=== PATIENT | female | born 1990 | race Caucasian/White ===

== ENCOUNTER → 2019-09-17 15:20 | Outpatient (CLI) | payer BC, SELFPAY ==
--- NOTE | 2019-09-17 15:32 | XR_ITS ---
PROCEDURE: XR FOOT LT MIN 3V CLINICAL INDICATION: LT FOOT AND ANKLE PAIN Left foot and ankle pain COMPARISON: XR ANKLE LT MIN 3V from 09/17/2019 FINDINGS: No fracture or dislocation. No lytic or blastic change. There is normal mineralization. The joint spaces are well-preserved. No significant degenerative/arthritic changes. No erosive changes evident. Other findings:There is an os cuboid as a normal variant IMPRESSION: Negative left foot and ankle Dictated by: Neri Chinchilla MD 09/17/2019 17:48 Electronically signed by Neri Chinchilla MD in [place] 09/17/2019 17:48
== END ==
PROVIDERS: Visit Provider Nurse Practitioner
DX: M79.672 Pain in left foot (principal); M25.572 Pain in left ankle and joints of left foot
CPT/HCPCS: 73610; 73630

== ENCOUNTER 2021-05-13 22:08 | Emergency (ER) | payer OTHER, BC, SELFPAY ==
[2021-05-13 21:57] VITALS: BP 148/99; PULSE 97; RESP 19; TEMP 36.8; O2SAT 97; BMI 37.5
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
[2021-05-13 22:32] LABS: Basophils # 0.3 K/mm3 (0-0.2); Basophils % 1.9 % (0.1-2.0); Eosinophils # 0.2 K/mm3 (0.0-0.4); Eosinophils % 1.1 % (0.1-12.0); Hematocrit 40.3 % (37.0-47.0); Hemoglobin 12.5 g/dL (12.2-16.2); Lymphocytes # 5.8 K/mm3 (0.7-4.5); Lymphocytes % 35.6 % (10-50); Mean Corpuscular HGB Conc 31.1 g/dL (31.8-35.4); Mean Corpuscular Hemoglobin 24.9 pg (27.0-31.2); Mean Corpuscular Volume 80.3 fl (81-99); Mean Platelet Volume 8.1 fl (7.4-10.4); Monocytes # 0.4 K/mm3 (0.1-1.0); Monocytes % 2.6 % (1.7-9.3); Neutrophils # 9.6 K/mm3 (1.8-7.8); Neutrophils % 58.8 % (37.0-80.0); Red Blood Count 5.02 M/mm3 (4.20-5.40); Red Cell Distribution Width 15.1 % (11.5-17.5); White Blood Count 16.3 K/mm3 (4.8-10.8)
[2021-05-13 22:35] LABS: Alanine Aminotransferase 24 U/L (12-78); Albumin Level 4.2 g/dl (3.5-5.0); Albumin/Globulin Ratio 1.1 (1.1-1.8); Alkaline Phosphatase 78 U/L (38-126); Aspartate Amino Transferase 41 U/L (14-36); Bilirubin,Total 0.2 mg/dl (0.2-1.3); Blood Urea Nitrogen 16 mg/dl (7-17); Calcium 9.4 mg/dl (8.4-10.2); Carbon Dioxide 25 mmol/L (22.0-30.0); Chloride 105 mmol/L (98-107); Creatinine Clearance Estimated 238 mL/min (50-200); Estimated Glomerular Filt Rate 118 ml/min (>60); GFR (African American) 143 ML/MIN (>60); Glucose 113 mg/dl (74-100); HCG Qualitative, Serum Negative (Negative); Lipase 40 U/L (23-300); Sodium 141 mmol/L (136-145); Total Protein,Serum 8.2 g/dl (6.3-8.2)
[2021-05-13 22:36] LABS: Platelet Count 637 K/mm3 (142-424)
[2021-05-13 22:37] LABS: MANUAL DIFFERENTIAL MANUAL DIFFERENTIAL (MANUAL DIFF)
[2021-05-13 23:02] LABS: Hypochromasia 1+; Lymphocytes % 22 % (10-50); Neutrophils % 77 % (42-76); Platelet Estimate Moderate Increase; Total Cells Counted 100
--- NOTE | 2021-05-13 23:10 | HMH.EDUPEXT ---
ED Disposition Clinical Impression: Left wrist injury Qualifiers: Encounter type: initial encounter Qualified Code(s): S69.92XA - Unspecified injury of left wrist, hand and finger(s), initial encounter Right wrist injury Qualifiers: Encounter type: initial encounter Qualified Code(s): S69.91XA - Unspecified injury of right wrist, hand and finger(s), initial encounter Abdominal contusion Qualifiers: Encounter type: initial encounter Qualified Code(s): S30.1XXA - Contusion of abdominal wall, initial encounter Disposition: Home, Self-Care Condition on Discharge: Good Instructions: DI for Wrist Strain Additional Instructions: advil/tyenol and see pcp for follow up Referrals: Ashley Moore APRN [Primary Care Provider] - - Critical Care Critical Care Time: No Attestation: On 05/13/21, the high probability of a clinically significant, sudden or life threatening deterioration of the following system(s) required my full and direct attention, intervention and personal management. The time I documented below is in addition to time spent performing reported procedures but includes the following listed in this critical care notation. Medical Decision Making - Medical Records Medical records reviewed: Yes: I reviewed the patient's medical records. - Marco A Inquiry Pt receiving controlled substance: No Vital Signs: 05/13/21 21:57 Temperature 98.2 F Temperature Source Oral Pulse Rate [Right Brachial] 97 H Respiratory Rate 19 Blood Pressure [Right Arm] 148/99 H Blood Pressure Mean [Right Arm] 115 Blood Pressure Source [Right Arm] Automatic Cuff Blood Pressure Position [Right Arm] Sitting 02 Sat by Pulse Oximetry 97 Oxygen Delivery Method Room Air - Lab Data Lab results reviewed: Yes: I reviewed the patient's lab results. Lab Results 05/13/21 22:04: WBC 16.3 H, RBC 5.02, Hgb 12.5, Hct 40.3, MCV 80.3 L, MCH 24.9 L, MCHC 31.1 L, RDW 15.1, Plt Count 637 H, MPV 8.1, Neut % (Auto) 58.8, Lymph % (Auto) 35.6, [place] % (Auto) 2.6, Eos % (Auto) 1.1, Baso % (Auto) 1.9, Neut # (Auto) 9.6 H, Lymph # (Auto) 5.8 H, [place] # (Auto) 0.4, Eos # (Auto) 0.2, Baso # (Auto) 0.3 H, Total Counted 100, Neutrophils % (Manual) 77 H, Band Neutrophils % 1.0, Lymphocytes % (Manual) 22, Platelet Estimate Moderate increase, Hypochromasia 1+ 05/13/21 22:04: Sodium 141, Potassium 4.0, Chloride 105, Carbon Dioxide 25, Anion Gap 15.0, BUN 16, Creatinine 0.60, Estimated Creat Clear 238, Estimated GFR 118, Est GFR ( Amer) 143, Glucose 113 H, Calcium 9.4, Total Bilirubin 0.2, AST 41 H, ALT 24, Alkaline Phosphatase 78, Total Protein 8.2, Albumin 4.2, Globulin 4.0 H, Albumin/Globulin Ratio 1.1, Lipase 40 05/13/21 22:04: Serum HCG, Qual Negative Result diagrams: 05/13/21 22:04 05/13/21 22:04 Orders (Tests/Meds): ED MEDICATIONS Discontinued Medications Generic Name Dose Route Start Last Admin Trade Name Justoq PRN Reason Stop Dose Admin Iopamidol 100 ml 05/13/21 23:17 05/13/21 23:18 Iopamidol-370 (76%);100ml Bottle IV 05/13/21 23:18 100 ml ONCE ONE Administration Sodium Chloride 40 ml 05/13/21 23:17 05/13/21 23:18 0.9 % Sodium Chloride 50 Ml Vial IV 05/13/21 23:18 40 ml ONCE ONE Administration Sodium Chloride 10 ml 05/13/21 23:17 05/13/21 23:18 Sodium Chloride 0.9% 10ml Syr (Rad Only) IV 05/13/21 23:18 10 ml ONCE ONE Administration ORDERS Category Date Time Status Urinalysis and Microscopic Stat Lab 05/13/21 22:14 Ordered - Radiology Data #1 Image(s): Chest, Forearm, Wrist, Pelvis Image Reviewed: Yes I have reviewed radiologist's interpretation Preliminary Findings: No Fracture Seen - CT Data CT Scan: Abdomen, Pelvis, Chest Time Received: 00:[address] Reviewed: Yes: I have viewed the radiologist's interpretation Preliminary Findings: Normal/NAD Medical Decision Narrative: no fx seen and no chest or abd injury Upper Extremity HPI - General Chief Complaint: Extremity Injury
[2021-05-14 00:56] VITALS: BP 136/90; PULSE 88; RESP 16; TEMP 36.6; O2SAT 99
== END 2021-05-14 00:59 | disposition home or self-care (01) ==
PROVIDERS: Emergency Provider Emergency Medicine; PCP Nurse Practitioner Family
DX: S30.1XXA Contusion of abdominal wall, initial encounter (principal); S69.92XA Unspecified injury of left wrist, hand and finger(s), initial encounter; S69.91XA Unspecified injury of right wrist, hand and finger(s), initial encounter; V40.5XXA Car driver injured in collision with pedestrian or animal in traffic accident, initial encounter; Y92.488 Other paved roadways as the place of occurrence of the external cause
CPT/HCPCS: 29125; 71045; 71275; 72170; 73090; 73110; 74177; 80053; 83690; 84703; 85007; 85025; 99282; Q9967

== ENCOUNTER 2021-07-28 18:07 | Emergency (ER) | payer BC, SELFPAY ==
[2021-07-28 18:09] VITALS: BP 150/98; PULSE 98; RESP 18; TEMP 36.9; O2SAT 99; BMI 40.7
--- NOTE | 2021-07-28 18:17 | XR_ITS ---
PROCEDURE INFORMATION: Exam: XR Chest Exam date and time: 07/28/2021 6:17 PM Age: 31 years old Clinical indication: Cough; Additional info: Covid TECHNIQUE: Imaging protocol: XR of the chest. Views: 1 view. COMPARISON: CR XR CHEST PORTABLE 05/13/2021 10:34 PM FINDINGS: Lungs: Unremarkable. No consolidation. Pleural spaces: Unremarkable. No pleural effusion. No pneumothorax. Heart/Mediastinum: Unremarkable. No cardiomegaly. Bones/joints: Unremarkable. IMPRESSION: No acute findings.
--- NOTE | 2021-07-28 18:27 | PC.NURSE ---
Called RAD for chest xray
[2021-07-28 18:36] LABS: Basophils # 0.2 K/mm3 (0-0.2); Basophils % 1.5 % (0.1-2.0); Eosinophils # 0.1 K/mm3 (0.0-0.4); Eosinophils % 0.9 % (0.1-12.0); Hematocrit 41.1 % (37.0-47.0); Hemoglobin 13.6 g/dL (12.2-16.2); Lymphocytes # 4.8 K/mm3 (0.7-4.5); Lymphocytes % 48.5 % (10-50); Mean Corpuscular HGB Conc 33.1 g/dL (31.8-35.4); Mean Corpuscular Volume 75.4 fl (81-99); Mean Platelet Volume 7.2 fl (7.4-10.4); Monocytes # 0.4 K/mm3 (0.1-1.0); Monocytes % 3.9 % (1.7-9.3); Neutrophils # 4.5 K/mm3 (1.8-7.8); Neutrophils % 45.2 % (37.0-80.0); Platelet Count 603 K/mm3 (142-424); Red Blood Count 5.45 M/mm3 (4.20-5.40); Red Cell Distribution Width 14.8 % (11.5-17.5)
--- NOTE | 2021-07-28 18:38 | HMH.EDGENADL ---
ED Disposition Clinical Impression: COVID-19 virus infection Disposition: Home, Self-Care Condition on Discharge: Good Instructions: DI for COVID-19 (Suspected or Confirmed ) Additional Instructions: Outpatient monoclonal antibody therapy. You will be contacted with appointment time. COVID-19 Isolation: Isolate yourself for a MINIMUM of 10 days from onset of symptoms: What to do: Monitor your symptoms. If you have an emergency warning sign (including trouble breathing), seek emergency medical care immediately. Stay in a separate room from other household members, if possible. Use a separate bathroom, if possible. Avoid contact with other members of the household and pets. Don?t share personal household items, like cups, towels, and utensils. Wear a mask when around other people if able. You can be around others AFTER: 10 days since symptoms first appeared AND 24 hours with no fever without the use of fever-reducing medications AND Other symptoms of COVID-19 are improving Referrals: Provider,Referral, [Primary Care Provider] - - Critical Care Critical Care Time: No Attestation: On 07/28/21, the high probability of a clinically significant, sudden or life threatening deterioration of the following system(s) required my full and direct attention, intervention and personal management. The time I documented below is in addition to time spent performing reported procedures but includes the following listed in this critical care notation. Medical Decision Making - Marco A Inquiry Pt receiving controlled substance: No Vital Signs: 07/28/21 18:09 07/28/21 18:59 Temperature 98.4 F Temperature Source Oral Pulse Rate 89 Pulse Rate [Right Radial] 98 H Respiratory Rate 18 18 Blood Pressure 116/73 Blood Pressure [Right Arm] 150/98 H Blood Pressure Mean [Right Arm] 115 Blood Pressure Source Automatic Cuff Blood Pressure Source [Right Arm] Automatic Cuff Blood Pressure Position Sitting Blood Pressure Position [Right Arm] Sitting 02 Sat by Pulse Oximetry 99 95 Oxygen Delivery Method Room Air Room Air - Lab Data Lab Results 07/28/21 18:23: WBC 10.0, RBC 5.45 H, Hgb 13.6, Hct 41.1, MCV 75.4 L, MCH 25.0 L, MCHC 33.1, RDW 14.8, Plt Count 603 H, MPV 7.2 L, Neut % (Auto) 45.2, Lymph % (Auto) 48.5, [place] % (Auto) 3.9, Eos % (Auto) 0.9, Baso % (Auto) 1.5, Neut # (Auto) 4.5, Lymph # (Auto) 4.8 H, [place] # (Auto) 0.4, Eos # (Auto) 0.1, Baso # (Auto) 0.2 07/28/21 18:23: Sodium 137, Potassium 3.8, Chloride 104, Carbon Dioxide 27, Anion Gap 9.8, BUN 8, Creatinine 0.50 L, Estimated Creat Clear 309 H, Estimated GFR 146, Est GFR ( Amer) 177, Glucose 118 H, Calcium 9.8, Total Bilirubin 0.3, AST 45 H, ALT 35, Alkaline Phosphatase 75, Total Protein 8.2, Albumin 4.3, Globulin 3.9 H, Albumin/Globulin Ratio 1.1 07/28/21 18:23: D-Dimer 0.53 H Result diagrams: 07/28/21 18:23 07/28/21 18:23 Orders (Tests/Meds): ORDERS Category Date Time Status Chest XR -- portable [XR chest portable] Stat Exams 07/28/21 18:17 Taken Medical Decision Narrative: D-dimer is 0.53 with a cutoff of 0.5, I do not feel this is a significant elevation and do not feel CTA of the chest is warranted. I discussed monoclonal antibody therapy with patient and she consents. Order will be placed. General Adult HPI - General Chief complaint: Shortness of Breath/Dyspnea Stated complaint: SOB Time Seen by Provider: 07/28/21 19:01 Mode of Arrival: Ambulatory Limitations: No Limitations Description of Symptoms (Recalled from ER Triage Doc. by RN): PT tested positive for Covid 07/28/2021. She stated that her chest hurts when she breaths in and out. She had a sinus GIVENS, non-productive cough, and body aches. - History of Present Illness HPI narrative: Patient states that she developed symptoms with Covid on Sunday 4 days ago. She tested positive the next day. She now is having a sensation of tightness in her chest wh
[2021-07-28 18:55] LABS: Alanine Aminotransferase 35 U/L (12-78); Albumin Level 4.3 g/dl (3.5-5.0); Albumin/Globulin Ratio 1.1 (1.1-1.8); Alkaline Phosphatase 75 U/L (38-126); Anion Gap 9.8 mEq/L (5-15); Aspartate Amino Transferase 45 U/L (14-36); Bilirubin,Total 0.3 mg/dl (0.2-1.3); Blood Urea Nitrogen 8 mg/dl (7-17); Calcium 9.8 mg/dl (8.4-10.2); Carbon Dioxide 27 mmol/L (22.0-30.0); Chloride 104 mmol/L (98-107); Creatinine Clearance Estimated 309 mL/min (50-200); Estimated Glomerular Filt Rate 146 ml/min (>60); GFR (African American) 177 ML/MIN (>60); Globulin 3.9 g/dL (1.3-3.2); Glucose 118 mg/dl (74-100); Potassium 3.8 mmoL/L (3.5-5.1); Sodium 137 mmol/L (136-145); Total Protein,Serum 8.2 g/dl (6.3-8.2)
[2021-07-28 18:59] VITALS: BP 116/73; PULSE 89; RESP 18; O2SAT 95
[2021-07-28 18:59] LABS: D-Dimer 0.53 ug/mL (0.0-0.5)
[2021-07-28 19:38] VITALS: BP 125/75; PULSE 101; RESP 24; TEMP 36.8; O2SAT 98
== END 2021-07-28 19:49 | disposition home or self-care (01) ==
PROVIDERS: Emergency Provider Emergency Medicine
DX: U07.1 COVID-19 (principal); R07.9 Chest pain, unspecified
CPT/HCPCS: 71045; 80053; 85025; 85378; 99282

== ENCOUNTER 2021-07-29 09:52 | Outpatient (CLI) | payer BC, SELFPAY ==
[2021-07-29] VITALS (10 sets, daily range): BP systolic 104–137; BP diastolic 72–91; PULSE 78–86; RESP 18; TEMP 36.8–36.9; O2SAT 94–99
== END 2021-07-29 13:05 | disposition home or self-care (01) ==
LOC: INF 09:53
PROVIDERS: PCP Nurse Practitioner Family; Visit Provider Emergency Medicine
DX: U07.1 COVID-19 (principal); Z23 Encounter for immunization
CPT/HCPCS: 96365

== ENCOUNTER 2022-02-21 16:10 | Emergency (ER) | payer BC, SELFPAY ==
[2022-02-21 16:45] VITALS: BP 141/90; PULSE 91; RESP 19; TEMP 36.8; O2SAT 97; BMI 39.1
[2022-02-21 16:59] LABS: Apearance,Urine Clear (Clear); Bilirubin,Urine Negative (Negative); Blood, Urine Negative (Negative); Color,Urine Dark Yellow (Yellow); Glucose,Urine (UA) Negative (Negative); Ketones,Urine Negative (Negative); Protein,Urine Negative (Negative); Urobilinogen,Urine 0.2 EU/dl (0.2)
[2022-02-21 16:59] LABS: UTC Pregnancy Test, Urine Negative (Negative)
[2022-02-21 17:00] LABS: UTC Leukocyte Esterase,Urine Negative (Negative); UTC Nitrate,Urine Negative (Negative)
--- NOTE | 2022-02-21 17:10 | HMH.EDUTC ---
[facility] Disposition Clinical Impression: Burning with urination, Sore throat Disposition: Home, Self-Care Condition on Discharge: Good Instructions: DI for Vaginal Itching Additional Instructions: Make sure to follow up for your test results they should be back in the next 5-7 days Return if needed Watch area for discharge Follow up with your Family Doctor if no improvement or any worsening of symptoms *Monitor Temp, Over the counter Motrin or Tylenol as directed/as needed Tylenol every 4 hours and Motrin every 6 hours (as long as your family doctor has told you that you can take it) for fever or pain. and straight to ER if unable to lower temp less than 101.0 after medication given *Warm salt water gargles may help to soothe the throat *Throat Lozenges *Warm fluids like tea with honey may help to soothe the throat *Sleep elevated *Humidifier/Vaporizer Your throat swab was sent for culture. Those results are typically sent to your primary care. Be sure to follow up in 2-3 days with your family doctor/primary care physician if no improvement so they can review those result and treat if necessary. If you don?t have a primary care doctor, I recommend you get one but in the mean time, you will have to return to a walk in clinic Follow up IMMEDIATELY for new or worsening symptoms or no Noticeable improvement over the next 48-72 hours. 911 for difficulty breathing or swallowing Prescriptions: Fluconazole [Diflucan 150mg tab] 150 mg PO ONCE #1 tab Transmission Status: Pending to [facility] Referrals: Ashley Moore APRN [Primary Care Provider] - As needed Time of Disposition: 17:58 Medical Decision Making - Marc Oa Inquiry Pt receiving controlled substance: No Marco A was queried for this patient: No Vital Signs: 02/21/22 16:45 Temperature 98.2 F Temperature Source Oral Pulse Rate [Right Brachial] 91 H Respiratory Rate 19 Blood Pressure [Right Arm] 141/90 H Blood Pressure Mean [Right Arm] 107 Blood Pressure Source [Right Arm] Automatic Cuff Blood Pressure Position [Right Arm] Sitting 02 Sat by Pulse Oximetry 97 Oxygen Delivery Method Room Air - Lab Data Lab results reviewed: Yes: I reviewed the patient's lab results. Lab Results 02/21/22 16:41: Urine Color Dark yellow, Urine Appearance Clear, Urine pH 7.0, Ur Specific [place] 1.020, Urine Protein Negative, Urine Glucose (UA) Negative, Urine Ketones Negative, Urine Blood Negative, Urine Nitrate Negative, Urine Bilirubin Negative, Urine Urobilinogen 0.2, Ur Leukocyte Esterase Negative 02/21/22 16:41: Group A Strep Rapid Negative 02/21/22 16:58: Tst Clinic Negative Orders (Tests/Meds): ORDERS Category Date Time Status UA [Urinalysis and Microscopic] Stat Lab 02/21/22 16:58 Received Strep Screen Confirmation Stat Micro 02/21/22 16:41 Received [facility] HPI - General Stated complaint: pain in urinate and sore throat Time Seen by Provider: 02/21/22 17:10 Mode of Arrival: Ambulatory Source of Information: Patient Limitations: No Limitations Description of Symptoms (Recalled from Triage Doc. by RN): PATIENT C/O BURNING WITH URINATION, SORE THROAT, HEADACHE, AND NAUSEA X 3 DAYS HEENT Symptoms (Recalled from RN notes): Yes Resp Symptoms (Recalled from RN notes): No Skin Symptoms (Recalled from RN notes): No MS Symptoms (Recalled from RN notes): No Functional Status (Recalled from RN notes): WNL - History of Present Illness Provider Complaint: Patient states that she has been having some burning and itching with urination and sore throat States that she was worried that she may have an STI and wanted to get checked State that she googled an may have yeast infection too but not having any discharge States that she has also had sore throat and little nausea so she came in to get checked - Related Data Previous Rx's Medication Instructions Recorded Fluconazole [Diflucan 150mg tab] 150 mg PO ONCE #1 tab 02/21/22 Maryan
[2022-02-21 17:11] LABS: Microscopic, Urine URINE MICROSCOPIC (MICROSCOPIC)
[2022-02-21 17:48] LABS: Strep Scrn Group A (Rapid) Negative (Negative)
[2022-02-21 18:01] VITALS: BP 141/90; PULSE 91; RESP 19; TEMP 36.8; O2SAT 97
[2022-02-21 18:12] LABS: Appearance,Urine CLEAR (Clear); Bilirubin,Urine Negative (Negative); Blood, Urine Negative (Negative); Color,Urine YELLOW (Yellow); Glucose,Urine (UA) Negative (Negative); Ketones,Urine Negative (Negative); Leukocyte Esterase,Urine Negative (Negative); Nitrate,Urine Negative (Negative); PH,Urine 7.5 (5.0-8.5); Protein,Urine Negative (Negative); Urobilinogen,Urine 0.2 EU/dl (0.2)
[2022-02-21 20:03] LABS: Bacteria,Urine Trace /lpf; WBC,Urine Occasional #/hpf (0-3)
[2022-02-23 22:08] LABS: Neisseria gonorrhoeae, NAA Negative (Negative)
== END 2022-02-21 18:15 | disposition home or self-care (01) ==
PROVIDERS: Emergency Provider Nurse Practitioner; PCP Nurse Practitioner Family
DX: R30.9 Painful micturition, unspecified (principal); J02.9 Acute pharyngitis, unspecified
CPT/HCPCS: 81001; 81003; 81025; 87430; 87491; 87591; 99212; G0463

== ENCOUNTER 2023-05-26 13:06 | Emergency (ER) | payer BC, SELFPAY ==
[2023-05-26 13:07] VITALS: PULSE 75; RESP 18; TEMP 36.7; O2SAT 98; BMI 28.1
--- NOTE | 2023-05-26 13:32 | HMH.EDGENADL ---
Discharge Plan Disposition Patient Disposition: Home, Self-Care Condition: Good Prescriptions Prescriptions: No Action fluconazole 150 MG tablet 150 mg PO ONCE Qty: 1 0RF Referrals Follow up/Referrals: Tata Hardin RN [Emergency Nurse] - See instructions Activity Restrictions/Add. Instructions Additional Instructions/Restrictions: Please follow-up with your primary care provider. Please return to the emergency department if you develop any new or worsening symptoms or become concerned for your health. Clinical Impressions Clinical Impression: Potential exposure to STD Discharge ED Provider: Chris Clement I General Adult HPI General Chief complaint: Recheck/Abnormal Lab/Rx Stated complaint: possible infection/proph tx Time Seen by Provider: 05/26/23 13:12 Mode of Arrival: Family Vehicle Source of Information: Patient Limitations: No Limitations Description of Symptoms (Recalled from ER Triage Doc. by RN): Pt here with her boyfriend who is being treated for a possible STI. She would also like to be prophlactically treated in case she has been exposed. Denies any symptoms at this time. History of Present Illness HPI narrative: Patient is a 33-year-old female with no other medical history who is presenting to the emergency department with possible STD exposure. She states that her boyfriend checked into the emergency department for prophylactic treatment of gonorrhea, chlamydia and would like to be treated for this as well. She denies any nausea, vomiting, abdominal pain, dysuria, vaginal discharge. States that she has otherwise been in her normal state of health. Patient would just like prophylactic treatment. Related Data Previous Rx's Medication Instructions Recorded fluconazole 150 mg tablet 150 mg PO ONCE #1 tab 02/21/22 Allergies Allergy/AdvReac Type Severity Reaction Status Date / Time Pertussis Vaccines Allergy Verified 02/21/22 17:06 [facility] Disclaimer: The information contained in this section may have been updated after the patient was seen, as this information can be updated by other users. Social History Smoking Status: Never smoker second hand exposure: No alcohol intake: never current occupational status: other Travel in the last 8 weeks: None ROS Obtained: Yes All systems reviewed & no additional complaints except as documented Physical Exam General General appearance: alert and in no apparent distress Head Head exam: atraumatic and normocephalic ENT ENT exam: Present normal exam Neck Neck exam: Present full ROM Chest Chest inspection: Present normal inspection and symmetric chest wall rise Respiratory Respiratory exam: Present normal lung sounds bilaterally; Absent respiratory distress or accessory muscle use Cardiovascular Cardiovascular exam: Present regular rate and normal rhythm Abdominal Exam Abdominal exam: Present soft; Absent distention, tenderness, guarding or rebound Extremities Exam Extremities exam: Present normal inspection and full ROM Neurological Exam Neurological exam: Present alert and oriented X3 Psychiatric Psychiatric exam: Present normal affect Skin Skin exam: Present warm, dry and intact Medical Decision Making Medical Records Medical records reviewed: Yes I reviewed the patient's medical records. Marco A Inquiry Pt receiving controlled substance: No Vital Signs: 05/26/23 13:07 Temperature 98.0 F Temperature Source Oral Pulse Rate [Right] 75 Respiratory Rate 18 02 Sat by Pulse Oximetry 98 Oxygen Delivery Method Room Air Orders (Tests/Meds): ED MEDICATIONS Generic Name Dose Route Start Last Admin Trade Name Justoq PRN Reason Stop Dose Admin Ceftriaxone Sodium 500 mg 05/26/23 13:14 05/26/23 13:28 Ceftriaxone 500mg Vial IM 05/26/23 13:15 500 mg ONCE ONE Administration Lidocaine HCl 0 ml 05/26/23 13:14 05/26/23 13:28 Lidocaine 1% 5ml Pf Vial IM 05/26/23 13:15 1.8 ml ONCE ONE A
[2023-05-26 13:47] VITALS: BP 120/78; PULSE 75; RESP 18; TEMP 36.6; O2SAT 98
== END 2023-05-26 13:50 | disposition home or self-care (01) ==
PROVIDERS: Emergency Provider Emergency Medicine; PCP Nurse Practitioner Family
DX: Z20.2 Contact with and (suspected) exposure to infections with a predominantly sexual mode of transmission (principal)
CPT/HCPCS: 96372; 99283; J0696

== ENCOUNTER 2023-06-17 09:03 | Emergency (ER) | payer BC, SELFPAY ==
[2023-06-17] VITALS (9 sets, daily range): BP systolic 129–158; BP diastolic 70–89; PULSE 91–100; RESP 14–29; TEMP 37.7–37.8; O2SAT 97–100; BMI 33.6
--- NOTE | 2023-06-17 09:01 | ECG_ITS ---
APPROVED REPORT Exam: Resting ECG HR:102 bpm ECG Measurements Heart Rate 102 AXES SD 127 P 22 QRSd 91 QRS 72 QT 335 T 5 QTc 394 Conclusion SINUS TACHYCARDIA NONSPECIFIC T-WAVE ABNORMALITY ABNORMAL RHYTHM ECG UNCONFIRMED REPORT Electronically signed by : Piter Toussaint MD 06/18/2023 20:27:17
--- NOTE | 2023-06-17 09:17 | HMH.EDGENADL ---
Discharge Plan Disposition Patient Disposition: Home, Self-Care Condition: Good Prescriptions Prescriptions: No Action fluconazole 150 MG tablet 150 mg PO ONCE Qty: 1 0RF doxycycline hyclate 100 mg capsule 100 mg PO BID 7 Days Qty: 14 0RF Referrals Follow up/Referrals: Jorge Rey APRN [Primary Care Provider] - See instructions Activity Restrictions/Add. Instructions Additional Instructions/Restrictions: You were evaluated in the emergency department today for concerns of chest pain. I did not identify anything life-threatening within the limitations of our studies performed today. You declined to have x-ray performed which I believe is reasonable, however there is always a chance that something was missed. Since you are symptoms have resolved and your work-up was reassuring, you are appropriate for discharge. You should be taking a vitamin. You can also consider a mild antacid such as Tums if needed for reflux symptoms. Follow-up with your primary care physician in a few days for reassessment, go to your scheduled OB appointment. Return to the emergency department with any new, worsening, or otherwise concerning symptoms. Clinical Impressions Clinical Impression: Chest pain Qualifiers: Chest pain type: unspecified Qualified Code(s): R07.9 - Chest pain, unspecified Discharge ED Provider: Tati David Adult HPI General Chief complaint: Chest Pain Stated complaint: CP Time Seen by Provider: 06/17/23 09:10 Mode of Arrival: Ambulatory Source of Information: Patient Limitations: No Limitations Description of Symptoms (Recalled from ER Triage Doc. by RN): 33 yo F presents to ED with c/o possilbe UTI, chest pain that began this am approx 0600. pt reports pain radiating into right arm. pt just found she was with at home test. History of Present Illness HPI narrative: This 33-year-old female G2, P1 presents to the emergency department with concerns of chest pain that woke her up around 6 AM. Patient reports sharp stabbing pain at the center of her chest that radiates to her right side. She has had her gallbladder removed. Patient found out recently that she is , most recent menstrual period was on 14 May. She states she is concerned she may have a UTI also since she has been having frequency, urgency, with little urine output as well as low abdominal cramping. She denies any vaginal bleeding or discharge. She denies any back pain. Patient states since waking up her pain has subsided. She states she is pain-free at this time. Patient has no history of blood clot, she denies any recent travel, she does not have any pain or swelling in her lower extremities. Her chest pain was not positional earlier, it is absent now. It was not pleuritic. Related Data Previous Rx's Medication Instructions Recorded fluconazole 150 mg tablet 150 mg PO ONCE #1 tab 02/21/22 doxycycline hyclate 100 mg capsule 100 mg PO BID 7 days #14 caps 05/26/23 Allergies Allergy/AdvReac Type Severity Reaction Status Date / Time Pertussis Vaccines Allergy Verified 02/21/22 17:06 [facility] Disclaimer: The information contained in this section may have been updated after the patient was seen, as this information can be updated by other users. Social History Smoking Status: Former smoker second hand exposure: No alcohol intake: never current occupational status: other Travel in the last 8 weeks: None ROS Obtained: Yes All systems reviewed & no additional complaints except as documented Constitutional Constitutional: Denies chills, Denies fever(s), Denies headache(s) and Denies weakness Eyes Eyes: Denies change in vision ENT Ears, Nose, Mouth, and Throat: Denies dizziness, Denies headache(s), Denies nasal congestion and Denies sore throat Cardiovascular Cardiovascular: Reports chest pain, Denies dyspnea and Denies leg edema Respiratory Respiratory: Denies cou
[2023-06-17 09:21] LABS: Basophils # 0.1 K/mm3 (0-0.2); Basophils % 0.6 % (0.1-2.0); Eosinophils % 0.4 % (0.1-12.0); Hematocrit 38.1 % (37.0-47.0); Hemoglobin 13.2 g/dL (12.2-16.2); Lymphocytes # 2.3 K/mm3 (0.7-4.5); Lymphocytes % 24.5 % (10-50); Mean Corpuscular HGB Conc 34.7 g/dL (31.8-35.4); Mean Corpuscular Hemoglobin 27.6 pg (27.0-31.2); Mean Corpuscular Volume 79.6 fl (81-99); Mean Platelet Volume 6.9 fl (7.4-10.4); Monocytes # 0.3 K/mm3 (0.1-1.0); Monocytes % 3.6 % (1.7-9.3); Neutrophils # 6.5 K/mm3 (1.8-7.8); Neutrophils % 70.8 % (37.0-80.0); Platelet Count 419 K/mm3 (142-424); Red Blood Count 4.79 M/mm3 (4.20-5.40); Red Cell Distribution Width 15.3 % (11.5-17.5); White Blood Count 9.2 K/mm3 (4.8-10.8)
[2023-06-17 09:22] LABS: Chloride 104 mmol/L (98-107); Potassium 3.6 mmoL/L (3.5-5.1); Sodium 136 mmol/L (136-145)
[2023-06-17 09:24] LABS: Blood Urea Nitrogen 5 mg/dl (7-17); Creatinine Clearance Estimated 251 mL/min (50-200); Estimated Glomerular Filt Rate 144 ml/min (>60); GFR (African American) 174 ML/MIN (>60)
[2023-06-17 09:25] LABS: Alanine Aminotransferase 22 U/L (12-78); Albumin Level 4.4 g/dl (3.5-5.0); Albumin/Globulin Ratio 1.1 (1.1-1.8); Alkaline Phosphatase 72 U/L (38-126); Anion Gap 9.6 mEq/L (5-15); Aspartate Amino Transferase 25 U/L (14-36); Bilirubin,Total 0.5 mg/dl (0.2-1.3); Calcium 8.6 mg/dl (8.4-10.2); Carbon Dioxide 26 mmol/L (22.0-30.0); Globulin 4.1 g/dL (1.3-3.2); Glucose 100 mg/dl (74-100); Total Protein,Serum 8.5 g/dl (6.3-8.2)
[2023-06-17 09:42] LABS: HCG,Quantitative 1184 mIU/ml (0-5.42)
[2023-06-17 09:47] LABS: Troponin I < 0.01 ng/ml (0.00-0.034)
[2023-06-17 10:36] LABS: Microscopic, Urine URINE MICROSCOPIC (MICROSCOPIC)
[2023-06-17 10:44] LABS: Appearance,Urine CLEAR (Clear); Bilirubin,Urine Negative (Negative); Blood, Urine Negative (Negative); Color,Urine YELLOW (Yellow); Glucose,Urine (UA) Negative (Negative); Ketones,Urine Negative (Negative); Leukocyte Esterase,Urine TRACE (Negative); Nitrate,Urine Negative (Negative); PH,Urine 6.5 (5.0-8.5); Protein,Urine Negative (Negative)
--- NOTE | 2023-06-17 10:47 | PC.NURSE ---
pt ambulated to bathroom and back independently. warm blanket given upon request.
[2023-06-17 10:56] LABS: WBC,Urine Occasional #/hpf (0-3)
--- NOTE | 2023-06-17 12:15 | PC.NURSE ---
ROUNDED ON PT, FAMILY AT BEDSIDE. CALL LIGHT WITHIN REACH
--- NOTE | 2023-06-17 12:55 | PC.NURSE ---
PT RESTING ON RIGHT SIDE, UPDATED ON POC. NO NEEDS AT THIS TIME
--- NOTE | 2023-06-17 13:02 | PC.NURSE ---
DR MORENO AT BEDSIDE TO UPDATE PT
[2023-06-17 13:23] LABS: Troponin I < 0.01 ng/ml (0.00-0.034)
== END 2023-06-17 13:38 | disposition home or self-care (01) ==
PROVIDERS: Emergency Provider Emergency Medicine; PCP Nurse Practitioner Family
DX: O26.891 Other specified pregnancy related conditions, first trimester (principal); R07.9 Chest pain, unspecified; R00.0 Tachycardia, unspecified; Z3A.01 Less than 8 weeks gestation of pregnancy; Z87.891 Personal history of nicotine dependence
CPT/HCPCS: 80053; 81001; 84484; 84702; 85025; 93005; 99284